=== PATIENT | male | born 2000 | race Caucasian/White ===

== ENCOUNTER 2023-07-03 07:48 | Emergency (ER) | payer OTHER, SELFPAY ==
[2023-07-03] VITALS (10 sets, daily range): BP systolic 79–108; BP diastolic 36–69; BMI 20.3
--- NOTE | 2023-07-03 08:38 | ED.GENMED ---
History of Present Illness
General
Chief Complaint: Throat Problem
Source: patient
Exam Limitations: none
Time Seen by Provider: 07/03/23 08:33
Travel History
Have you had any contact with someone who has COVID-19?: No
Do you have any symptoms of coronavirus? Fever > 100 degrees, chills, cough, shortness of breath, sore throat, loss of taste or smell, muscle aches, or headache?: No
History of Present Illness
History of Present Illness:
22-year-old male presents complaining of 2 to 3 days worth of worsening swelling to the uvula and sore throat. He has a history of peritonsillar abscess he has a history of mononucleosis but this feels different. He does not deal with seasonal
allergies. No known sick contacts. He has trouble laying down because the uvula dangles too much. No vomiting. No other complaints at this time
Past History
Past History
ED Past Medical History: None
ED Past Surgical History: None
Social History
Tobacco: Non-smoker
Alcohol: Occasional
Drug: Marijuana
Personal: Single
Living: with family
Employment: Student
Phy Exam
Physical Exam
Physical Exam:
General: Well appearing male, NAD
HEENT: NC/AT. Swelling noted of the uvula. The uvula is dangling hanging to the right. There is erythema throughout the pharynx and mild swelling on the right side. No trismus or drooling. No adenopathy. No exudate
Heart: Regular rate and rhythm no murmurs
Lungs: Clear no wheeze or rales
Extremities: No cyanosis or edema
Skin: Warm, no rashes
Course
Orders/Labs/Results
Orders:
Orders
07/03/23 08:39
Dexamethasone Sod Phosphate [Decadron] 10 mg IV NOW STA
Diphenhydramine [Benadryl] 25 mg IV NOW STA
Ketorolac [Toradol] 15 mg IV NOW STA
07/03/23 09:05
0.9% Sodium Chloride 500 ml [Nss] 500 ml IV BOLUS
07/03/23 09:13
Rapid Strep Group A Urgent
AMARILIS Source: Throat/Pharynx
Specimen Description:
Date Specimen was Collected: 07/03/23
Time Specimen was Collected: 08:51
Throat Culture [Throat Culture, Comprehensive] Urgent
AMARILIS Source: Throat/Pharynx
Specimen Description:
Date Specimen was Collected: 07/03/23
Time Specimen was Collected: 08:51
Vital Signs
Initial and Last Documented VS:
Initial Vital Signs
Temp Pulse Resp BP Pulse Ox
98.5 F 74 18 105/67 100
07/03/23 07:53 07/03/23 07:53 07/03/23 07:53 07/03/23 07:53 07/03/23 07:53
Last Documented Vital Signs
Temp Pulse Resp BP Pulse Ox
98.5 F 76 20 99/52 100
07/03/23 07:53 07/03/23 11:45 07/03/23 11:45 07/03/23 11:30 07/03/23 11:45
MDM/Problems Addressed
Differential Diagnosis Includes:
Swelling of the uvula and erythema of the throat. Consider uvulitis versus tonsillitis. Will test for strep. Has a history of mono but does not appear to be mono. Treat symptoms with Toradol Benadryl and Decadron. No obvious signs of
peritonsillar abscess on exam no respiratory distress.
*Critical Care Note
Total Time (30-74mins, 75-104mins- exclusive of procedures): Not Applicable
Update Note
Update Note:
Patient feeling much better after treatment. Noted improved swelling on exam. Strep test negative. Suspect allergy or viral mediated process. Recommended continued antihistamines and will prescribe a steroid as well. Return precautions were
given
ED Attending Note
-
Portions of this chart may have been created with voice recognition software.� Occasional wrong word or��sound alike� substitutions may have occurred due to the inherent limitations of voice recognition software.
Discharge Plan
Departure
Patient Disposition: Home (Routine Discharge)
Date of Disposition: 07/03/23
Time of Disposition: 12:21
Patient with high blood pressure during this ER visit?: No
Discharge Problem:
Uvulitis
Instructions: Sore Throat, Adult (DC)
Prescriptions:
New
prednisone 20 mg tablet
40 mg PO DAILY 5 Days Qty: 10 0RF
No Action
Multiple Vitamins
1 tab PO DAILY
Referrals:
NONE,* [Family Provider] -
Activity Restrictions/Additional Instructions:
Continue with Tylenol or Benadryl. Take steroid as directed peer return if worse otherwise follow-up with family doctor
Interventions
Interventions:
*Risk Screen - Suicide Last Done: 07/03/23 08:23
*General Assessment Last Done: 07/03/23 08:23
*Neglect/Abuse Screening Last Done: 07/03/23 08:23
ED- Fall Risk Assessment Last Done: 07/03/23 09:00
*ED COVID-19 Vaccine History Last Done: 07/03/23 07:53
ED-EENT Assessment Last Done: 07/03/23 08:23
ED- Pulmonary Assessment Last Done: 07/03/23 08:23
Discharge Date and Time
Print Language: [place]
[2023-07-03] MEDS: TORADOL 15 MG IV (09:00)
[2023-07-03] MEDS: DECADRON 10 MG IV (09:00)
[2023-07-03] MEDS: NSS 500 IV (09:05)
[2023-07-03] MEDS: BENADRYL 25 MG IV (09:05)
--- NOTE | 2023-07-03 09:10 | EDRN ---
Patient had a vagal response with IV placement. Benton Braswell PA-C notified. Patient receiving 500cc NSS bolus. Patient stated that this has happened in the past with blood draws.
== END 2023-07-03 12:34 | disposition home or self-care (01) ==
LOC: EMR 07:48
PROVIDERS: EMERGENCY PHYSICIAN Emergency Medicine
DX: K12.2 Cellulitis and abscess of mouth (principal)
CPT/HCPCS: 99283; 96374; 96375; 96361; 87070; 87147; 87880

== ENCOUNTER 2024-01-09 13:26 | Emergency (ER) | payer OTHER, SELFPAY ==
[2024-01-09 13:30] VITALS: BP 101/61
--- NOTE | 2024-01-09 14:59 | ED.GENMED ---
History of Present Illness
General
Chief Complaint: Throat Problem
Time Seen by Provider: 01/09/24 14:35
History of Present Illness
History of Present Illness:
23-year-old male presents to the emergency department for evaluation of suspected peritonsillar abscess. He has had this happen several times in the past and is concerned that it may worsen if he does not treated early. He is able to eat and drink
without difficulty at this time. No fevers. Mother is also concerned that his urine is been very dark and is been exercising vigorously recently with a history of rhabdomyolysis that was seemingly provoked by exertion. The patient denies any
myalgias
Past History
Past History
ED Past Medical History: None
ED Past Surgical History: None
Social History
Tobacco: Non-smoker
Alcohol: Occasional
Drug: Marijuana
Personal: Single
Living: with family
Employment: Student
Review of Systems
Review of Systems
Allergies reviewed?: Yes
All Other Systems: ROS reviewed and negative except as documented in HPI and ROS
Phy Exam
Physical Exam
Physical Exam:
GEN: Well appearing, NAD, WDWN
HEENT: Oral mucosa moist, no scleral icterus. Prominent right tonsillar hypertrophy, no obvious pointing abscess, uvula midline
Cardiac: Regular rate
Lung: No respiratory distress, no tachypnea
MSK: No gross deformity or injuries
Skin: Good color, no pallor or jaundice, no rashes
Neuro: AO x3, moves all extremities freely
Psych: Calm, cooperative
Course
Orders/Labs/Results
Orders:
Orders
01/09/24 14:59
Dexamethasone Sod Phosphate [Decadron] 10 mg IV NOW STA
01/09/24 15:18
CPK [Creatine Phosphokinase] Urgent
Complete Blood Count/No Diff Urgent
Comprehensive Metabolic Panel Urgent
01/09/24 16:02
Clindamycin HCl [Cleocin] 450 mg PO NOW STA
Ketorolac [Toradol] 15 mg IV NOW STA
Abnormal Lab Results
01/09/24
15:18
MCH 31.3 H pg
(27.0-31.0)
MPV 10.6 H fL
(7.4-10.4)
Carbon Dioxide 31 H mmol/L
(22-30)
Glucose 64 L mg/dl
(70-99)
01/09/24 15:18
01/09/24 15:18
Vital Signs
Initial and Last Documented VS:
Initial Vital Signs
Temp Pulse Resp BP Pulse Ox
98.5 F 73 18 101/61 95
01/09/24 13:30 01/09/24 13:30 01/09/24 13:30 01/09/24 13:30 01/09/24 13:30
Last Documented Vital Signs
Temp Pulse Resp BP Pulse Ox
98.5 F 73 18 101/61 95
01/09/24 13:30 01/09/24 13:30 01/09/24 13:30 01/09/24 13:30 01/09/24 13:30
MDM/Problems Addressed
MDM/Problems Addressed:
POLL CLERK does not appear to be large enough to warrant drainage. Will start abx and steroids, recommend close ENT f/u
*Critical Care Note
Total Time (30-74mins, 75-104mins- exclusive of procedures): Not Applicable
ED Attending Note
-
Portions of this chart may have been created with voice recognition software.� Occasional wrong word or��sound alike� substitutions may have occurred due to the inherent limitations of voice recognition software.
Discharge Plan
Departure
Patient Disposition: Home (Routine Discharge)
Date of Disposition: 01/09/24
Time of Disposition: 16:03
Patient with high blood pressure during this ER visit?: No
Discharge Problem:
Abscess, peritonsillar
Instructions: Peritonsillar Abscess, Adult (DC)
Prescriptions:
New
prednisone 20 mg tablet
40 mg PO DAILY 5 Days Qty: 10 0RF
clindamycin HCl 300 mg capsule
300 mg PO TID 7 Days Qty: 21 0RF
No Action
Multiple Vitamins
1 tab PO DAILY
prednisone 20 mg tablet
40 mg PO DAILY 5 Days Qty: 10 0RF
Referrals:
Bao Leos MD [Active] - Call in 1-3 days for appt
Nathen Mo DO [Family Provider] -
Interventions
Interventions:
*Risk Screen - Suicide Last Done: 01/09/24 13:30
*General Assessment Last Done: 01/09/24 16:17
*Neglect/Abuse Screening Last Done: 01/09/24 13:30
*ED COVID-19 Vaccine History Last Done: 01/09/24 16:17
*Nursing Disposition Last Done: 01/09/24 16:19
ED-EENT Assessment Last Done: 01/09/24 16:17
ED- Pulmonary Assessment Last Done: 01/09/24 16:19
Discharge Date and Time
Discharge Date/Time: 01/09/24 16:20
Print Language: SAMI
[2024-01-09] MEDS: DECADRON 10 MG IV (15:19)
[2024-01-09 15:51] LABS: ALT (SGPT) 18 U/L (0-50); AST (SGOT) 26 U/L (17-59); Albumin 4.7 g/dl (3.5-5.0); Alkaline Phosphatase 83 U/L (38-126); Blood Urea Nitrogen 12 mg/dl (9-20); Calcium 9.8 mg/dl (8.4-10.2); Carbon Dioxide 31 mmol/L (22-30); Chloride 100 mmol/L (98-107); Creatine Phosphokinase 138 U/L (55-170); Glucose 64 mg/dl (70-99); Hematocrit 43.8 % (39.0-52.0); Hemoglobin 15.3 g/dL (13.0-18.0); Mean Corp Hgb Conc. 34.9 g/dL (33.0-37.0); Mean Corpuscular Hgb 31.3 pg (27.0-31.0); Mean Corpuscular Volume 89.6 fL (80.0-94.0); Mean Platelet Volume 10.6 fL (7.4-10.4); Platelet Count 187 10^3/uL (130-400); Potassium 4.8 mmol/L (3.5-5.1); Red Blood Cell Count 4.89 10^6/uL (4.70-6.10); Red Cell Dist. Width 12.6 % (11.5-14.5); Sodium 140 mmol/L (135-145); Total Bilirubin 0.6 mg/dl (0.2-1.3); White Blood Cell Count 7.3 10^3/uL (4.8-10.8); eGFR > 60.00
[2024-01-09] MEDS: TORADOL 15 MG IV (16:10)
[2024-01-09] MEDS: CLEOCIN 450 MG PO (16:10)
== END 2024-01-09 16:20 | disposition home or self-care (01) ==
LOC: EMR 13:26
PROVIDERS: Physician Assistant; EMERGENCY PHYSICIAN Emergency Medicine; FAMILY PHYSICIAN Family Medicine
DX: J36 Peritonsillar abscess (principal)
CPT/HCPCS: 99284; 96374; 96375; 80053; 82550; 85027